=== PATIENT | female | born 1980 | race African-American/Black ===

== ENCOUNTER 2019-08-11 18:29 | Emergency (ER) | payer MEDICAID ==
[~2019-08-11] VITALS: Ht 167.6 cm; Wt 86.0 kg
[~2019-08-11 18:29] MED LIST: BCP; HYDR1TAB PO; IBUP-812 PO
[2019-08-11 18:38] VITALS: BP 130/95
[2019-08-11] MEDS ORDERED: bupivacaine 0.25%/epinephrine 1:200,000 inj (contains preserv. MDV) IJ ONE (20:45)
[2019-08-11] MEDS ORDERED: AMOX-580 PO (22:02)
[2019-08-11] MEDS ORDERED: ketorolac trometh inj. 60 MG/2 ML VIAL IM ONE (22:10)
[2019-08-11] MEDS ORDERED: amox tr/potassium clavulanate 875/125mg TAB PO ONE (22:10)
== END 2019-08-11 22:21 | disposition home or self-care (01) ==
LOC: ER 18:30
DX: K02.9 Dental caries, unspecified (principal); J02.9 Acute pharyngitis, unspecified; Z98.890 Other specified postprocedural states; Z88.8 Allergy status to other drugs, medicaments and biological substances; Z88.1 Allergy status to other antibiotic agents; Z79.899 Other long term (current) drug therapy
CPT/HCPCS: 64400; 96372; 99284; J1885

== ENCOUNTER 2020-12-27 12:21 | Emergency (ER) | payer MEDICAID ==
[~2020-12-27] VITALS: Ht 167.6 cm; Wt 83.9 kg
[2020-12-27 12:50] LABS: BASOPHILS # (AUTO) 0.1 X10'3 (0-0.2); EOSINOPHILS # (AUTO) 0.1 X10'3 (0-0.9); EOSINOPHILS % (AUTO) 1.1 % (0-6); HEMATOCRIT 40.4 % (35.0-45.0); HEMOGLOBIN 14.1 g/dl (12.0-16.0); LYMPHOCYTES % (AUTO) 27.6 % (21-51); MEAN CORPUSCULAR HEMOGLOBIN 32.7 PG (27.0-31.0); MEAN CORPUSCULAR HGB CONC 34.9 g/dL (33.0-36.5); MEAN CORPUSCULAR VOLUME 93.5 FL (78-98); MEAN PLATELET VOLUME 7.6 FL (7.4-10.4); MONOCYTES # (AUTO) 0.7 X10'3 (0-0.9); MONOCYTES % (AUTO) 6.9 % (2-12); NEUTROPHILS # (AUTO) 6.8 X10'3 (1.8-7.7); NEUTROPHILS % (AUTO) 63.4 % (42-75); PLATELET COUNT 350 X10'3 (140-440); RED BLOOD COUNT 4.32 X10'6 (4.20-5.60); RED CELL DISTRIBUTION WIDTH 12.7 % (11.5-14.5); WHITE BLOOD COUNT 10.8 X10'3 (4.5-11.0)
[2020-12-27 13:06] LABS: ALANINE AMINOTRANSFERASE 42 U/L (12-78); ALBUMIN 4.1 G/DL (3.4-5.0); ALBUMIN/GLOBULIN RATIO 1.2 (1.1-1.5); ALKALINE PHOSPHATASE 79 IU/L (46-116); ANION GAP 12 (8-16); ASPARTATE AMINO TRANSFERASE 33 U/L (10-37); BILIRUBIN,TOTAL 0.4 MG/DL (0.1-1.0); BLOOD UREA NITROGEN 17 MG/DL (7-18); BUN/CREATININE RATIO 16.5 (6.6-38.0); CHLORIDE 104 MMOL/L (99-107); CREATININE 1.03 MG/DL (0.40-0.90); GLUCOSE 99 MG/DL (70-104); POTASSIUM 3.8 MMOL/L (3.5-5.1); SODIUM 143 MMOL/L (135-145); TOTAL CARBON DIOXIDE 26.9 MMOL/L (24-32); TOTAL PROTEIN 7.6 G/DL (6.4-8.2); eGFR 72 ML/MIN
--- NOTE | 2020-12-27 16:24 | NUR ---
PT AMB WITH STEADY GAIT TO FAST TRACK,
--- NOTE | 2020-12-27 16:46 | NUR ---
PT MOVED TO ROOM FAST TRACK 2 FOR ISOLATION PRECAUTIONS, NEED COVID SWAB
[2020-12-27 16:48] VITALS: BP 150/98
--- NOTE | 2020-12-27 17:07 | NUR ---
COVID SWAB SENT TO LAB
--- NOTE | 2020-12-27 18:55 | NUR ---
PATIENT LEFT PRIOR TO DISCHARGE
== END 2020-12-27 20:42 | disposition home or self-care (01) ==
LOC: ER 12:22
DX: K92.0 Hematemesis (principal); Z20.822 Contact with and (suspected) exposure to COVID-19; R42 Dizziness and giddiness; Z98.890 Other specified postprocedural states; Z88.1 Allergy status to other antibiotic agents; Z88.8 Allergy status to other drugs, medicaments and biological substances; Z79.899 Other long term (current) drug therapy
CPT/HCPCS: 36415; 71045; 80053; 83880; 84484; 85025; 87635; 93005; 99285; C9803

== ENCOUNTER 2023-06-12 13:16 | Emergency (ER) | payer MEDICAID ==
[~2023-06-12] VITALS: Ht 167.6 cm; Wt 93.2 kg
[2023-06-12 13:41] VITALS: BP 124/84; PULSE 94; RESP 18; TEMP 96.3; O2SAT 97
[2023-06-12] MEDS ORDERED: ESCI20TA39 PO (14:32)
[2023-06-12] MEDS ORDERED: BUPR-344 PO (14:32)
--- NOTE | 2023-06-12 19:01 | NUR ---
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
== END 2023-06-12 14:44 | disposition home or self-care (01) ==
LOC: ER 13:17
DX: O26.893 Other specified pregnancy related conditions, third trimester (principal); Z76.0 Encounter for issue of repeat prescription; Z88.8 Allergy status to other drugs, medicaments and biological substances; Z79.899 Other long term (current) drug therapy
CPT/HCPCS: 99281

== ENCOUNTER 2023-08-27 12:49 | Emergency (ER) | payer MEDICAID ==
[~2023-08-27] VITALS: Ht 167.6 cm; Wt 87.6 kg
[~2023-08-27 12:49] MED LIST changes: +BUPR-344 PO; +ESCI20TA39 PO
[2023-08-27 14:12] VITALS: BP 135/93; PULSE 95; RESP 17; TEMP 98.7; O2SAT 96
[2023-08-27] MEDS ORDERED: acetaminophen 325mg tablet PO ONE (14:45)
[2023-08-27 15:14] LABS: BASOPHILS # (AUTO) 0.1 X10'3 (0-0.2); BASOPHILS % (AUTO) 0.7 % (0-1); EOSINOPHILS # (AUTO) 0.2 X10'3 (0-0.9); EOSINOPHILS % (AUTO) 1.3 % (0-6); HEMATOCRIT 40.7 % (35.0-45.0); HEMOGLOBIN 13.3 g/dl (12.0-16.0); LYMPHOCYTES # (AUTO) 3.6 X10'3 (1.1-4.8); LYMPHOCYTES % (AUTO) 23.8 % (21-51); MEAN CORPUSCULAR HEMOGLOBIN 29.5 PG (27.0-31.0); MEAN CORPUSCULAR HGB CONC 32.7 g/dL (33.0-36.5); MEAN CORPUSCULAR VOLUME 90.2 FL (78-98); MEAN PLATELET VOLUME 7.6 FL (7.4-10.4); MONOCYTES # (AUTO) 0.9 X10'3 (0-0.9); MONOCYTES % (AUTO) 5.8 % (2-12); NEUTROPHILS # (AUTO) 10.3 X10'3 (1.8-7.7); NEUTROPHILS % (AUTO) 68.4 % (42-75); PLATELET COUNT 511 X10'3 (140-440); RED BLOOD COUNT 4.51 X10'6 (4.20-5.60); RED CELL DISTRIBUTION WIDTH 13.5 % (11.5-14.5); WHITE BLOOD COUNT 15.1 X10'3 (4.5-11.0)
[2023-08-27 15:27] LABS: ALANINE AMINOTRANSFERASE 31 U/L (12-78); ALBUMIN 3.7 G/DL (3.4-5.0); ALBUMIN/GLOBULIN RATIO 0.9 (1.1-1.5); ALKALINE PHOSPHATASE 127 IU/L (46-116); ANION GAP 7 (8-16); ASPARTATE AMINO TRANSFERASE 19 U/L (10-37); BILIRUBIN,TOTAL 0.3 MG/DL (0.1-1.0); BLOOD UREA NITROGEN 10 MG/DL (7-18); BUN/CREATININE RATIO 10.1 (10.0-20.0); C-REACTIVE PROTEIN 1.19 MG/DL (0.0-0.5); CALCIUM 9.4 MG/DL (8.5-10.1); CHLORIDE 103 MMOL/L (99-107); CREATININE 0.99 MG/DL (0.40-0.90); GLUCOSE 115 MG/DL (70-104); POTASSIUM 4.3 MMOL/L (3.5-5.1); SODIUM 138 MMOL/L (135-145); TOTAL CARBON DIOXIDE 28.2 MMOL/L (24-32); TOTAL PROTEIN 7.9 G/DL (6.4-8.2); eCRCL 69 ML/MIN; eGFR 74 ML/MIN
[2023-08-27] MEDS ORDERED: iohexol 300mg/ml 100ml inj. ONE (19:01)
[2023-08-27] MEDS ORDERED: sulfamethoxazole/trimethoprim DS (800/160mg) tablet PO ONE (20:00)
[2023-08-27] MEDS ORDERED: SULF1TAB49 PO (20:04)
[2023-08-27] MEDS ORDERED: IBUP-1984 PO (20:24)
[2023-08-27] MEDS ORDERED: ibuprofen tablet 400 MG TABLET PO ONE (20:25)
== END 2023-08-27 20:37 | disposition home or self-care (01) ==
LOC: ER 12:50
DX: O86.00 Infection of obstetric surgical wound, unspecified (principal); Z88.8 Allergy status to other drugs, medicaments and biological substances
CPT/HCPCS: 36415; 72193; 80053; 85025; 85651; 86140; 87070; 87075; 99285; J3490; Q9967; 87077; 87186

== ENCOUNTER 2024-07-10 09:20 | Emergency (ER) | payer MEDICAID ==
[~2024-07-10] VITALS: Ht 167.6 cm; Wt 95.5 kg
[2024-07-10] MEDS ORDERED: AMOX-117 PO (10:58)
[2024-07-10 11:04] VITALS: BP 146/101; PULSE 82; RESP 16; TEMP 97.9; O2SAT 99
== END 2024-07-10 11:07 | disposition home or self-care (01) ==
LOC: ER 09:21
DX: J01.00 Acute maxillary sinusitis, unspecified (principal); H66.93 Otitis media, unspecified, bilateral; F17.200 Nicotine dependence, unspecified, uncomplicated; Z88.1 Allergy status to other antibiotic agents; Z88.5 Allergy status to narcotic agent; Z88.6 Allergy status to analgesic agent; Z88.8 Allergy status to other drugs, medicaments and biological substances
CPT/HCPCS: 99283

== ENCOUNTER 2024-10-12 23:22 | Emergency (ER) | payer MEDICAID ==
[~2024-10-12] VITALS: Ht 167.6 cm; Wt 84.1 kg
[2024-10-12 23:26] VITALS: BP 129/94; PULSE 94; RESP 15; O2SAT 98
[2024-10-13] MEDS ORDERED: CLIN-142 PO (00:49)
[2024-10-13] MEDS: clindamycin 150mg capsule PO ONE (00:58)
[2024-10-13 00:59] VITALS: TEMP 98.6
== END 2024-10-13 01:42 | disposition home or self-care (01) ==
LOC: ER 23:23
DX: N64.4 Mastodynia (principal); Z88.1 Allergy status to other antibiotic agents; Z88.8 Allergy status to other drugs, medicaments and biological substances; Z98.890 Other specified postprocedural states
CPT/HCPCS: 99283